=== PATIENT | female | born 1950 | race Caucasian/White ===

== ENCOUNTER 2021-12-18 11:52 | Observation (INO) | payer MEDICARE, OTHER ==
[~2021-12-18] VITALS: Ht 177.8 cm; Wt 120.0 kg
--- NOTE | 2021-12-18 11:52 | NUR ---
PT TO ROOM VIA WC ABLE TO STAND AND TRANSFER SELF TO STRETCHER W/SOB
[2021-12-18 12:43] LABS: ALBUMIN 4.1 g/dL (3.2-5.0); ALKALINE PHOSPHATASE 99 u/l (38-126); ANION GAP 15 (6-22 (CALC)); BILIRUBIN, TOTAL 0.5 mg/dL (0.0-1.4); BUN 25 mg/dL (8-23); BUN/CREATININE RATIO 23 (12-20 (CALC)); CARBON DIOXIDE 25 mmol/l (22-30); CHLORIDE 105 mmol/l (95-108); CREATININE 1.1 mg/dL (0.5-1.0); GFR 49 ML/MIN (>=60 (CALC)); GFR FOR AFR.AMER. 60 ML/MIN (>=60 (CALC)); POTASSIUM 4.3 mmol/l (3.5-5.1); SGOT/AST 26 u/l (9-36); SODIUM 141 mmol/l (137-146); TOTAL PROTEIN 7.7 g/dL (6.3-8.2)
[2021-12-18 12:51] LABS: HEMATOCRIT 41.9 % (37.0-47.0); HEMOGLOBIN 12.8 g/dl (12.0-16.0); IMMATURE GRANULOCYTES 0.1 % (0.0-5.0); MEAN CELL VOLUME 86.9 fL CALC (80.0-100.0); MEAN CORPUSCULAR HGB 26.6 pG CALC (26.0-32.0); MEAN CORPUSCULAR HGB CONC 30.5 g/dL CAL (32.0-36.0); NEUT# 5.86 thou/uL (2.00-7.15); RED BLOOD COUNT 4.82 mill/uL (4.20-5.60); RED CELL DISTRI WIDTH 13.3 % (11.5-15.5)
--- NOTE | 2021-12-18 13:12 | NUR ---
MD AT BEDSIDE TO DISCUSS RESULTS AND POC
[2021-12-18 14:02] LABS: URINE BILIRUBIN - DIPSTICK NEGATIVE (NEGATIVE); URINE BLOOD DIPSTICK NEGATIVE (NEGATIVE); URINE COLOR YELLOW; URINE GLUCOSE - DIPSTICK NEGATIVE (NEGATIVE); URINE KETONE NEGATIVE (NEGATIVE); URINE LEUK ESTERASE NEGATIVE (NEGATIVE); URINE PH 5.5 (4.5-8.0); URINE PROTEIN - DIPSTICK NEGATIVE (NEG-TRACE); URINE SPECIFIC GRAVITY 1.015; URINE UROBILINOGEN - DIPSTICK 0.2 E.U./dL (0.2)
[2021-12-18 14:05] LABS: URINE NITRITE - DIPSTICK NEGATIVE (Negative)
--- NOTE | 2021-12-18 14:28 | NUR ---
MD AT BEDSIDE TO DISCUSS RESULTS AND POC
--- NOTE | 2021-12-18 15:28 | NUR ---
BRITNEY BROWN AT BEDSIDE TO DISCUSS POC
[2021-12-18] MEDS ORDERED: GLIMEPIRIDE4 MG PO (15:46)
[2021-12-18] MEDS ORDERED: ANASTROZOLE1 MG PO (15:47)
[2021-12-18] MEDS ORDERED: LISINOPRIL20 M1 PO (15:47)
[2021-12-18] MEDS ORDERED: GABAPENTIN300 M2 PO (15:48)
[2021-12-18] MEDS ORDERED: ADULT ASPIRIN R81 MG PO (15:49)
[2021-12-18] MEDS ORDERED: CLOPIDOGREL75 MG PO (15:50)
[2021-12-18] MEDS ORDERED: TYLENOL500 MG PO (15:51)
[2021-12-18] MEDS ORDERED: NORVASC5 M1 PO (15:51)
[2021-12-18] MEDS ORDERED: BASAGLAR K100 UNIT/M SC (15:52)
[2021-12-18] MEDS ORDERED: CITALOPRAM20 M1 PO (15:52)
--- NOTE | 2021-12-18 16:00 | NUR ---
MEDICATION RECONCILIATION FOR PATIENT IS COMPLETE. MEDICATION LIST OBTAINED FROM PATIENTS MEDICATION LIST.
--- NOTE | 2021-12-18 17:47 | NUR ---
REPORT CALLED TO ANAND BOYKIN
--- NOTE | 2021-12-18 18:00 | NUR ---
TO MED SURG VIA WHEELCHAIR, TELE MONITOR IN PLACE
[2021-12-18 18:12] VITALS: BP 161/62
--- NOTE | 2021-12-18 18:18 | NUR ---
RECEIVE REPORT FROM PETE ED NURSE. PATIENT ALERT AND ORIENTED X3. NO DISTRESS RESPIRATORY AT THIS TIME. VERUFY VITAL SIGND AND ACCUX. PATIENT RESTING IN BED
[2021-12-18 19:00] VITALS: BP 151/71
--- NOTE | 2021-12-18 20:00 | NUR ---
PATIENT SITTING UP IN BED AWAKE ALERT AND ORIENTEDX3. PATIENT WITH NO COMPLAINTS OF PAIN OR SOB AT THIS TIME. STATES THAT SHE WENT TO SEE HER PCP TODAY AND WAS REFERRED TO THE ER BY HIS. TELE MONITOR IN PLACE WITH INITIAL READING SR-86. SALINE LOCK TO RAC INTACT AND HEALTHY AT THIS TIME. LAST TROP WAS NEG. LUNGS ARE CLEAR. ABD SOFT WITH ACTIVE BS. STATES LAST BM WAS TODAY. DENIES ANY DIFFICULTY WITH URINATION EXCEPT URGENCY WHICH IS CHRONIC. ORIENTED PATIENT TO ROOM AND SURROUNDINGS. INSTRUCTED PATIENT ON USE OF NURSE CALL LIGHT SYSTEM AND TV REMOTE. SAFETY PRECAUTIONS REINFORCED. CALL LIGHT IN REACH. WILL CONT TO MONITOR.
[2021-12-19] VITALS: BP 142/85
[2021-12-19 04:00] VITALS: BP 172/82
--- NOTE | 2021-12-19 06:09 | NUR ---
PATIENT RESTING IN BED-0600 TROP HAS BEEN DRAWN. TELE MONITOR IN PLACE. CALL LIGHT IN REACH. WILL CONT TO MONITOR.
[2021-12-19 06:21] LABS: HEMATOCRIT 41.4 % (37.0-47.0); HEMOGLOBIN 12.6 g/dl (12.0-16.0); MEAN CORPUSCULAR HGB 26.5 pG CALC (26.0-32.0); MEAN CORPUSCULAR HGB CONC 30.4 g/dL CAL (32.0-36.0); RED BLOOD COUNT 4.76 mill/uL (4.20-5.60); RED CELL DISTRI WIDTH 13.2 % (11.5-15.5)
[2021-12-19 06:50] LABS: CREATININE 1.1 mg/dL (0.5-1.0); MAGNESIUM 2.1 mg/dL (1.6-2.3); POTASSIUM 4.4 mmol/l (3.5-5.1)
--- NOTE | 2021-12-19 07:25 | NUR ---
PT CONSENTED TO RECEIVE FLU SHOT BUT GOT HIGH DOSE @ [facility] ON 08/26/21
--- NOTE | 2021-12-19 08:00 | NUR ---
SHIFT CHANGE REPORT, PT AWAKE ALERT AND ORIENTED SITTING UP IN BED, DENIES PAIN AND STATED HER CHEST PAIN HAS BEEN RESOLVED, TELE MONITOR IN PLACE, CALL DIAZ IN REACH AND BED LOCKED IN LOWEST POSITION.
[2021-12-19 08:42] VITALS: BP 127/62
[2021-12-19 11:07] VITALS: BP 137/62
--- NOTE | 2021-12-19 12:00 | NUR ---
RELAXING IN MD KAILYN ROUNDED AND DISCUSSED D/C PLANS, NO NEW COMPLAINS.
--- NOTE | 2021-12-19 14:15 | NUR ---
Discharge instructions given. Patient verbalizes understanding of same. Discharged in good condition via Wheelchair to Home with family. All belongings sent with pt.
== END 2021-12-19 13:30 | disposition home or self-care (01) ==
LOC: ED 11:52 → ED-I 14:19 → ED 14:40 → MS2 14:41
PROVIDERS: Family Medicine; Nurse Practitioner; ADMIT Internal Medicine; ATTEND Internal Medicine
DX: R06.02 Shortness of breath (principal); R07.9 Chest pain, unspecified; I25.10 Atherosclerotic heart disease of native coronary artery without angina pectoris; I10 Essential (primary) hypertension; E11.9 Type 2 diabetes mellitus without complications; E78.5 Hyperlipidemia, unspecified; N64.9 Disorder of breast, unspecified; Z85.3 Personal history of malignant neoplasm of breast; Z95.5 Presence of coronary angioplasty implant and graft; Z79.02 Long term (current) use of antithrombotics/antiplatelets; Z79.82 Long term (current) use of aspirin; Z20.822 Contact with and (suspected) exposure to COVID-19
CPT/HCPCS: G0378; J1650; Q9967

== ENCOUNTER 2022-10-21 13:26 | Inpatient (IN) | payer MEDICARE, OTHER ==
[2022-10-21] VITALS (12 sets, daily range): BP systolic 129–184; BP diastolic 72–99
[~2022-10-21] VITALS: Ht 177.8 cm; Wt 114.2 kg
[~2022-10-21 13:26] MED LIST: ADULT ASPIRIN R81 MG PO; ANASTROZOLE1 MG PO; BASAGLAR K100 UNIT/M SC; CITALOPRAM20 M1 PO; CLOPIDOGREL75 MG PO; GABAPENTIN300 M2 PO; GLIMEPIRIDE4 MG PO; LISINOPRIL20 M1 PO; NORVASC5 M1 PO; TYLENOL500 MG PO
[2022-10-21 13:49] LABS: HEMATOCRIT 40.7 % (37.0-47.0); HEMOGLOBIN 12.5 g/dl (12.0-16.0); IMMATURE GRANULOCYTES 0.1 % (0.0-5.0); MEAN CELL VOLUME 85.7 fL CALC (80.0-100.0); MEAN CORPUSCULAR HGB 26.3 pG CALC (26.0-32.0); MEAN CORPUSCULAR HGB CONC 30.7 g/dL CAL (32.0-36.0); NEUT# 5.86 thou/uL (2.00-7.15); RED BLOOD COUNT 4.75 mill/uL (4.20-5.60); RED CELL DISTRI WIDTH 13.7 % (11.5-15.5)
[2022-10-21 14:01] LABS: ALBUMIN 3.9 g/dL (3.2-5.0); ALKALINE PHOSPHATASE 93 u/l (38-126); ANION GAP 13 (6-22 (CALC)); BILIRUBIN, TOTAL 0.4 mg/dL (0.0-1.4); BUN 22 mg/dL (8-23); BUN/CREATININE RATIO 22 (12-20 (CALC)); CARBON DIOXIDE 23 mmol/l (22-30); CHLORIDE 107 mmol/l (95-108); GFR FOR AFR.AMER. > 60 ML/MIN (>=60 (CALC)); GFR OTHER RACES 55 ML/MIN (>=60 (CALC)); POTASSIUM 4.7 mmol/l (3.5-5.1); SGOT/AST 19 u/l (9-36); SODIUM 139 mmol/l (137-146); TOTAL PROTEIN 6.7 g/dL (6.3-8.2)
[2022-10-21 14:04] LABS: ACT PARTIAL THROMBO TIME 24.4 SECONDS (20.0-32.5); PROTHROMBIN TIME 9.9 SECONDS (9.0-12.5)
[2022-10-21] MEDS ORDERED: CYMBALTA20 MG PO (16:05)
[2022-10-22] VITALS (8 sets, daily range): BP systolic 136–173; BP diastolic 55–74
[2022-10-23 04:00] VITALS: BP 149/71
[2022-10-23 04:07] VITALS: BP 149/71
[2022-10-23 05:59] LABS: HEMATOCRIT 42.3 % (37.0-47.0); HEMOGLOBIN 13.4 g/dl (12.0-16.0); IMMATURE GRANULOCYTES 0.2 % (0.0-5.0); MEAN CELL VOLUME 85.1 fL CALC (80.0-100.0); MEAN CORPUSCULAR HGB CONC 31.7 g/dL CAL (32.0-36.0); NEUT# 4.59 thou/uL (2.00-7.15); RED BLOOD COUNT 4.97 mill/uL (4.20-5.60); RED CELL DISTRI WIDTH 13.8 % (11.5-15.5)
[2022-10-23 06:23] LABS: ALBUMIN 3.7 g/dL (3.2-5.0); ALKALINE PHOSPHATASE 92 u/l (38-126); ANION GAP 11 (6-22 (CALC)); BILIRUBIN, TOTAL 0.4 mg/dL (0.0-1.4); BUN 20 mg/dL (8-23); BUN/CREATININE RATIO 22 (12-20 (CALC)); CARBON DIOXIDE 26 mmol/l (22-30); CHLORIDE 106 mmol/l (95-108); CREATININE 0.9 mg/dL (0.5-1.0); GFR FOR AFR.AMER. > 60 ML/MIN (>=60 (CALC)); GFR OTHER RACES > 60 ML/MIN (>=60 (CALC)); POTASSIUM 4.6 mmol/l (3.5-5.1); SGOT/AST 19 u/l (9-36); SODIUM 138 mmol/l (137-146); TOTAL PROTEIN 6.6 g/dL (6.3-8.2)
[2022-10-23 06:45] VITALS: BP 153/66
[2022-10-23 10:26] VITALS: BP 135/70
[2022-10-23] MEDS ORDERED: PLAVIX75 MG PO (11:07)
[2022-10-23] MEDS ORDERED: ZETIA10 MG PO (11:10)
== END 2022-10-23 13:53 | disposition home or self-care (01) | DRG 66 ==
LOC: ED 13:26 → ED-I 15:20 → ED 15:46 → MS2 15:47
PROVIDERS: Emergency Medicine; Nurse Practitioner; Nurse Practitioner Family; ADMIT Internal Medicine; ATTEND Internal Medicine
DX: I63.81 Other cerebral infarction due to occlusion or stenosis of small artery (principal); R47.01 Aphasia; R29.700 NIHSS score 0; I10 Essential (primary) hypertension; E11.9 Type 2 diabetes mellitus without complications; I25.10 Atherosclerotic heart disease of native coronary artery without angina pectoris; E78.5 Hyperlipidemia, unspecified; F41.9 Anxiety disorder, unspecified; M19.041 Primary osteoarthritis, right hand; Z95.5 Presence of coronary angioplasty implant and graft; Z85.3 Personal history of malignant neoplasm of breast; Z79.4 Long term (current) use of insulin
CPT/HCPCS: G0378; Q9967

== ENCOUNTER 2022-11-09 21:55 | Emergency (ER) | payer MEDICARE, OTHER ==
[~2022-11-09] VITALS: Ht 177.8 cm; Wt 77.0 kg
[~2022-11-09 21:55] MED LIST changes: +CYMBALTA20 MG PO; +PLAVIX75 MG PO; +ZETIA10 MG PO
[2022-11-09 22:01] VITALS: BP 132/74
[2022-11-09 22:29] VITALS: BP 131/66
[2022-11-09] MEDS ORDERED: METOPROL TAR25 MG PO (22:39)
[2022-11-09 22:48] LABS: BASO% 0.4 % (0-3); EOS% 3.3 % (0-8); HEMATOCRIT 38.6 % (37.0-47.0); HEMOGLOBIN 12.3 g/dl (12.0-16.0); IMMATURE GRANULOCYTES 0.1 % (0.0-5.0); LYMPH% 11.2 % (15-41); MEAN CELL VOLUME 84.8 fL CALC (80.0-100.0); MEAN CORPUSCULAR HGB CONC 31.9 g/dL CAL (32.0-36.0); NEUT# 7.9 thou/uL (2.00-7.15); RED BLOOD COUNT 4.55 mill/uL (4.20-5.60); RED CELL DISTRI WIDTH 13.6 % (11.5-15.5)
[2022-11-09 23:02] LABS: CREATININE 1.2 mg/dL (0.5-1.0); POTASSIUM 4.1 mmol/l (3.5-5.1)
[2022-11-09 23:26] VITALS: BP 111/50
[2022-11-09 23:31] VITALS: BP 106/80
[2022-11-09 23:56] VITALS: BP 106/80
== END 2022-11-10 00:01 | disposition home or self-care (01) ==
LOC: ED 21:55
PROVIDERS: Family Medicine
DX: J06.9 Acute upper respiratory infection, unspecified (principal); I10 Essential (primary) hypertension; E11.9 Type 2 diabetes mellitus without complications; I25.10 Atherosclerotic heart disease of native coronary artery without angina pectoris; E78.5 Hyperlipidemia, unspecified; Z86.73 Personal history of transient ischemic attack (TIA), and cerebral infarction without residual deficits; Z95.5 Presence of coronary angioplasty implant and graft; Z79.84 Long term (current) use of oral hypoglycemic drugs; Z20.822 Contact with and (suspected) exposure to COVID-19

== ENCOUNTER 2023-03-04 08:36 | Day surgery (SDC) | payer MEDICARE, OTHER ==
[~2023-03-04] VITALS: Ht 177.8 cm; Wt 113.4 kg
[~2023-03-04 08:36] MED LIST changes: +ELIQUIS5 MG PO; +EZETIMIBE10 MG; +METFORMIN500 M2 PO; +METOPROL TAR25 MG PO
[2023-03-04] MEDS ORDERED: LOVENOX SC (09:08)
[2023-03-04 11:17] VITALS: BP 143/62
== END 2023-03-04 11:35 | disposition home or self-care (01) ==
LOC: ENDO 08:36 → ORM 09:00 → ENDO 09:00 → ORM 10:15 → ENDO 11:35
PROVIDERS: ATTEND Surgery
PROC: 0DJD8ZZ Inspection of Lower Intestinal Tract, Via Natural or Artificial Opening Endoscopic (ICD-10-PCS; principal; 2023-03-04)
DX: K57.30 Diverticulosis of large intestine without perforation or abscess without bleeding (principal); K64.8 Other hemorrhoids; I10 Essential (primary) hypertension; E11.9 Type 2 diabetes mellitus without complications; I48.91 Unspecified atrial fibrillation; Z86.73 Personal history of transient ischemic attack (TIA), and cerebral infarction without residual deficits; Z95.828 Presence of other vascular implants and grafts; Z79.84 Long term (current) use of oral hypoglycemic drugs; Z79.4 Long term (current) use of insulin